=== PATIENT | female | born 1945 | race Caucasian/White ===

== ENCOUNTER → 2020-08-14 | Outpatient (CLI) | payer MEDICARE, OTHER ==
[~2020-08-14] MED LIST: ACET325; ALBU90OI; Advair Hfa 230-12 GM; CHOL10002 PO; COMBIGAN OS; Combigan Eye Dro5 ML; ESCI10; ESOM20 PO; LATA.005SO LEFTEYE; LEVSOD112 PO; LEVSOD125 PO; LIOT5 PO; LIVALO; LOVA40 PO; MELO7.5; OMEP20ER PO; Xalatan2.5 ML
[2020-08-16 14:59] LABS: CORONAVIRUS (COVID19) CSH-NRL Negative (Negative)
== END | disposition home or self-care (01) ==
LOC: LAB SHORT 16:55 → LAB 16:55
PROVIDERS: Physician Assistant
DX: R53.83 Other fatigue (principal); Z20.828 Contact with and (suspected) exposure to other viral communicable diseases
CPT/HCPCS: U0003

== ENCOUNTER 2023-05-05 08:51 | Day surgery (SDC) | payer MEDICARE, OTHER ==
[~2023-05-05] VITALS: Ht 170.2 cm; Wt 63.5 kg
[2023-05-05] MEDS ORDERED: NABU750 PO (09:48)
[2023-05-05] MEDS ORDERED: FOSAMAX70 MG PO (09:51)
[2023-05-05] MEDS ORDERED: PROG100 PO (09:52)
[2023-05-05] MEDS ORDERED: EUTHYROX100 MC1 PO (09:52)
[2023-05-05 12:38] VITALS: BP 147/67
== END 2023-05-05 12:41 | disposition home or self-care (01) ==
LOC: ORSCSDS 08:51
PROVIDERS: Internal Medicine Gastroenterology
PROC: 0DBN8ZX Excision of Sigmoid Colon, Via Natural or Artificial Opening Endoscopic, Diagnostic (ICD-10-PCS; principal; 2023-05-05 10:15)
PROC: 0DBL8ZX Excision of Transverse Colon, Via Natural or Artificial Opening Endoscopic, Diagnostic (ICD-10-PCS; principal; 2023-05-05 10:15)
PROC: 0DBM8ZX Excision of Descending Colon, Via Natural or Artificial Opening Endoscopic, Diagnostic (ICD-10-PCS; principal; 2023-05-05 10:15)
PROC: 0DBK8ZX Excision of Ascending Colon, Via Natural or Artificial Opening Endoscopic, Diagnostic (ICD-10-PCS; principal; 2023-05-05 10:15)
DX: Z12.11 Encounter for screening for malignant neoplasm of colon (principal); Z86.010 Personal history of colon polyps; D12.3 Benign neoplasm of transverse colon; D12.2 Benign neoplasm of ascending colon; D12.4 Benign neoplasm of descending colon; D12.5 Benign neoplasm of sigmoid colon; K63.5 Polyp of colon; K57.30 Diverticulosis of large intestine without perforation or abscess without bleeding; K64.4 Residual hemorrhoidal skin tags; E03.9 Hypothyroidism, unspecified; Z79.899 Other long term (current) drug therapy
CPT/HCPCS: 88305; J2405; J2704; J7120

== ENCOUNTER 2024-12-14 01:29 | Observation (INO) | payer MEDICARE, OTHER ==
[~2024-12-14] VITALS: Ht 167.6 cm; Wt 64.9 kg
[~2024-12-14 01:29] MED LIST changes: +EUTHYROX100 MC1 PO; +FOSAMAX70 MG PO; +NABU750 PO; +PROG100 PO
[2024-12-14] MEDS ORDERED: LIPITOR80 MG PO (01:54)
[2024-12-14] MEDS ORDERED: Nitroglycerin 0.4 MG SUBL SL ONE (02:00)
[2024-12-14 02:17] LABS: Albumin/Globulin Ratio 1.3 (0.8-1.8); Bilirubin, Total 0.6 mg/dL (0.1-1.0); Bun/Creatinine Ratio 21.7 (12.0-20.0); Calcium, Blood 9.3 mg/dL (8.5-10.1); Creatinine, Blood 0.83 mg/dL (0.40-1.00); Globulin, Blood 3.1 g/dL (2.2-4.0); Potassium, Blood 3.6 mmol/L (3.5-5.5); Total Protein, Blood 7.1 g/dL (6.4-8.2)
[2024-12-14 02:20] LABS: BASOPHILS ABSOLUTE AUTO 0.04 K/mm3 (0.00-0.23); BASOPHILS PERCENT AUTO 0 % (0-2); EOSINOPHILS PERCENT AUTO 2 % (0-6); Hematocrit 43.1 % (33.0-51.0); Hemoglobin 15.1 g/dL (11.5-16.0); IMMATURE GRAN ABSOLUTE AUTO 0.05 K/mm3 (0.00-0.10); IMMATURE GRAN PERCENT AUTO 1 % (0-1); LYMPHOCYTES ABSOLUTE AUTO 3.38 K/mm3 (0.84-5.20); LYMPHOCYTES PERCENT AUTO 34 % (21-46); MONOCYTES ABSOLUTE AUTO 0.81 K/mm3 (0.16-1.47); MONOCYTES PERCENT AUTO 8 % (4-13); Mean Corpuscular HGB 29.8 pg (26.0-34.0); Mean Corpuscular Volume 85 fL (80-100); Mean Platelet Volume 10.1 fL (9.1-12.4); NEUTROPHILS ABSOLUTE AUTO 5.45 K/mm3 (1.96-9.15); NEUTROPHILS PERCENT AUTO 55 % (41-73); Platelet Count 229 K/mm3 (150-400); RDW Coefficient Variation 12.9 % (11.7-14.2); RDW Standard Deviation 39.8 fL (35.1-46.3); Red Blood Cell Count 5.07 M/mm3 (3.80-5.20); White Blood Cell Count 9.93 K/mm3 (4.00-11.30)
[2024-12-14 02:37] LABS: Magnesium, Blood 2.1 mg/dL (1.6-2.4)
[2024-12-14] MEDS ORDERED: HydrALAZINE HCl 20 MG / ML 1ML Vial IV ONE (03:45)
[2024-12-14] MEDS ORDERED: FLU VACC TS2024-25(6MOS UP)/PF 45 MCG/0.5 ML SYRINGE IM ONE (04:05)
[2024-12-14] MEDS ORDERED: Ondansetron 4 MG TAB PO PRN (04:05)
[2024-12-14] MEDS ORDERED: HydrALAZINE HCl 20 MG / ML 1ML Vial IV PRN (04:05)
[2024-12-14] MEDS ORDERED: Morphine Sulfate 10 MG/ML 1MLSYR IV PRN (04:35)
[2024-12-14] MEDS ORDERED: Nitroglycerin 0.4 MG SUBL SL PRN (04:35)
[2024-12-14] MEDS ORDERED: Nitroglycerin 0.4 MG SUBL PO SCH (04:40)
[2024-12-14] MEDS ORDERED: NS 1,000 ML IV SCH (05:00)
[2024-12-14] MEDS ORDERED: Lactated Ringer's 1,000 ML IV SCH (05:00)
[2024-12-14 05:19] LABS: BASOPHILS ABSOLUTE AUTO 0.04 K/mm3 (0.00-0.23); BASOPHILS PERCENT AUTO 0 % (0-2); EOSINOPHILS ABSOLUTE AUTO 0.13 K/mm3 (0.00-0.68); EOSINOPHILS PERCENT AUTO 1 % (0-6); Hematocrit 43.9 % (33.0-51.0); Hemoglobin 15.1 g/dL (11.5-16.0); IMMATURE GRAN ABSOLUTE AUTO 0.03 K/mm3 (0.00-0.10); IMMATURE GRAN PERCENT AUTO 0 % (0-1); LYMPHOCYTES ABSOLUTE AUTO 2.57 K/mm3 (0.84-5.20); LYMPHOCYTES PERCENT AUTO 26 % (21-46); MONOCYTES ABSOLUTE AUTO 0.61 K/mm3 (0.16-1.47); MONOCYTES PERCENT AUTO 6 % (4-13); Mean Corpuscular HGB 29.3 pg (26.0-34.0); Mean Corpuscular HGB Conc 34.4 g/dL (31.5-36.5); Mean Corpuscular Volume 85 fL (80-100); Mean Platelet Volume 10.1 fL (9.1-12.4); NEUTROPHILS ABSOLUTE AUTO 6.38 K/mm3 (1.96-9.15); NEUTROPHILS PERCENT AUTO 65 % (41-73); Platelet Count 233 K/mm3 (150-400); RDW Coefficient Variation 12.9 % (11.7-14.2); RDW Standard Deviation 39.8 fL (35.1-46.3); Red Blood Cell Count 5.16 M/mm3 (3.80-5.20); White Blood Cell Count 9.76 K/mm3 (4.00-11.30)
[2024-12-14 05:33] LABS: International Normalized Ratio 0.99; Prothrombin Time Results 10.6 Sec (9.7-11.5)
[2024-12-14] MEDS ORDERED: Omeprazole 20 MG CapCR PO SCH (06:00)
[2024-12-14 06:02] LABS: Albumin, Blood 3.8 g/dL (3.4-5.0); Albumin/Globulin Ratio 1.2 (0.8-1.8); Bilirubin, Total 0.6 mg/dL (0.1-1.0); Bun/Creatinine Ratio 19.8 (12.0-20.0); Creatinine, Blood 0.81 mg/dL (0.40-1.00); Globulin, Blood 3.2 g/dL (2.2-4.0); Thyroid Stimulating Hormone 1.42 uIU/mL (0.360-4.800)
--- NOTE | 2024-12-14 06:50 | NUR ---
SHIFT SUMMARY REPORT RECIEVED FROM [facility]. PT ARRIVED TO PCU VIA [facility] AROUND 0455. PT STOOD AND TRANSFERED FROM [facility] TO PCU BED INDEPENDENTLY. PT A&O X4, CALM, COOPERATIVE TO CARE. HR IN THE 80'S-90'S, SINUS RHYTHM WITH BBB. PT STATED SHE HAS "CHEST TIGHTNESS, NOT PAIN" TIGHTNESS IS INTERMITTENT AND AT TIMES RADIATES TO ABD. PER TELE PT HAD SOME ST CHANGES, RESIDENT NOTIFIED. O2 >92% ON RA, DENIES SOB. PT WITH RAC PIV INFUSING PER EMAR. PTS DAUGHTER AT BEDSIDE. PT WITH SBP ELEVATED, MEDICATED PER EMAR. PT RESTING IN BED AT THIS TIME, WILL MONITOR PT AND REPORT TO ONCOMING RN.
[2024-12-14] MEDS ORDERED: Levothyroxine Sodium 0.1 MG Tab PO SCH ×2 (07:15→09:00)
[2024-12-14] MEDS ORDERED: Ondansetron HCl 2 MG / ML 2ML Vial IV PRN (07:15)
[2024-12-14 07:24] VITALS: BP 122/55
[2024-12-14] MEDS ORDERED: Enoxaparin 40 MG/0.4 ML SYR SC SCH (09:00)
[2024-12-14] MEDS ORDERED: Atorvastatin 40 MG Tab PO SCH (09:00)
[2024-12-14] MEDS ORDERED: Cholecalciferol 1000 Unit Tablet (=25MCG) PO SCH (09:00)
--- NOTE | 2024-12-14 10:45 | NUR ---
am note this rn assumed care at 0700. vital signs stable. tele sinus rhythm. patient is alert and oriented x4. neuro is intact. perrla. patient is able to make needs known and uses call light appropriately. denies pain or shortness of breath. patent when assuming care reporting chest pressure rated at 2, that resolved with time. see shift assessment for further detials. this rn discussed plan for stress test today with patient and patient daughters at bedside and verbalized understanding. patient had first part of stress test and just went down for imaging.
[2024-12-14 11:41] VITALS: BP 127/57
[2024-12-14 15:49] VITALS: BP 134/80
--- NOTE | 2024-12-14 17:24 | NUR ---
shift summary patient vital signs remain stable. neuro remains intact. plan for second part of stress test tomorrow at approx 1330. patient is aware of this and that the time can be subject to change. no acute changes since previous notes.
[2024-12-14] MEDS ORDERED: Acetaminophen 325 MG TABLET PO PRN (17:25)
[2024-12-14 19:40] VITALS: BP 150/64
[2024-12-15 01:16] VITALS: BP 137/69
--- NOTE | 2024-12-15 01:30 | NUR ---
UPDATE PT REPORTED SOME CHEST DISCOMFORT. PT DESCRIBED THE PAIN A "FLUTTERING" AND STATED IT WAS NOT PAINFUL. PT WAS MEDICATD PER EMAR AND REPORTS DISCOMFORT HAS RESOLVED. VSS. PT RESTING IN BED AT THIS TIME. WILL MONITOR PT.
[2024-12-15 03:46] VITALS: BP 123/62
[2024-12-15 04:43] LABS: BASOPHILS ABSOLUTE AUTO 0.05 K/mm3 (0.00-0.23); BASOPHILS PERCENT AUTO 1 % (0-2); EOSINOPHILS ABSOLUTE AUTO 0.17 K/mm3 (0.00-0.68); EOSINOPHILS PERCENT AUTO 2 % (0-6); Hematocrit 40.1 % (33.0-51.0); Hemoglobin 13.6 g/dL (11.5-16.0); IMMATURE GRAN ABSOLUTE AUTO 0.04 K/mm3 (0.00-0.10); IMMATURE GRAN PERCENT AUTO 0 % (0-1); LYMPHOCYTES PERCENT AUTO 28 % (21-46); MONOCYTES PERCENT AUTO 8 % (4-13); Mean Corpuscular HGB 29.3 pg (26.0-34.0); Mean Corpuscular HGB Conc 33.9 g/dL (31.5-36.5); Mean Corpuscular Volume 86 fL (80-100); Mean Platelet Volume 10.3 fL (9.1-12.4); NEUTROPHILS ABSOLUTE AUTO 5.73 K/mm3 (1.96-9.15); NEUTROPHILS PERCENT AUTO 62 % (41-73); Platelet Count 225 K/mm3 (150-400); RDW Coefficient Variation 13.2 % (11.7-14.2); Red Blood Cell Count 4.64 M/mm3 (3.80-5.20); White Blood Cell Count 9.29 K/mm3 (4.00-11.30)
[2024-12-15 05:14] LABS: Bun/Creatinine Ratio 20.3 (12.0-20.0); Calcium, Blood 9.1 mg/dL (8.5-10.1); Creatinine, Blood 0.89 mg/dL (0.40-1.00); Potassium, Blood 3.9 mmol/L (3.5-5.5)
[2024-12-15] MEDS ORDERED: Omeprazole 20 MG CapCR PO SCH (06:00)
--- NOTE | 2024-12-15 06:37 | NUR ---
SHIFT SUMMARY PT A&O X4, CALM, COOPERATIVE TO CARE. HR IN THE 60'S, SINUS RHYTHM, BBB. PT DENIES CP/PRESSURE AT THIS TIME. SHE DID HAVE ONE EPISODE OF CHEST DISCOMFORT DESCRIBED "FLUTTERING", MEDICATED PER EMAR, PT REPORTED DISCOMFORT RESOLVED PT DESATED TO 88-89% DURING THE NIGHT, PT PLACED ON 2L VIA NC. O2 IMPROVED, PT NOW ON RA SATING AT 94%. PT NPO T/O NIGHT FOR SECOND PORTION OF STRESS TEST TODAY. PT RESTING IN BED AT THIS TIME. WILL MONITOR PT AND REPORT TO ONCOMING RN.
[2024-12-15 08:05] VITALS: BP 126/65
[2024-12-15 11:11] VITALS: BP 116/52
[2024-12-15] MEDS ORDERED: Regadenoson 0.4 MG/5 ML SYRINGE ONE ×2 (13:21→13:48)
[2024-12-15] MEDS ORDERED: Amlodipine Bes2.5 MG PO (16:52)
[2024-12-15] MEDS ORDERED: METO25ER PO (16:52)
--- NOTE | 2024-12-15 17:51 | NUR ---
DISCHARGE HOME PT A&O X4. VSS. SPO2 > 92% ON RA. MONITOR SHOWING SR W/ BBB & PVCs. PT DENYING CP/DISCOMFORT THIS SHIFT. STRESS TEST COMPLETE. W/ ORDER FOR DISCHARGE HOME. NEW MEDICATIONS FAXED TO PT'S PREFERRED PHARMACY. DISCHARGE INSTRUCTIONS REVIEWED W/ PT & SENT HOME W/ PT. PT TAKEN OUT IN WHEELCHAIR W/ BELONGINGS @ APPROX 1720.
== END 2024-12-15 17:20 | disposition home or self-care (01) ==
LOC: ER 01:29 → PCU 04:01
PROVIDERS: Emergency Medicine; Internal Medicine; Student in an Organized Health Care Education/Training Program; ADMIT Student in an Organized Health Care Education/Training Program
DX: R07.89 Other chest pain (principal); I10 Essential (primary) hypertension; I49.3 Ventricular premature depolarization; I44.7 Left bundle-branch block, unspecified; I51.7 Cardiomegaly; E89.0 Postprocedural hypothyroidism; E78.5 Hyperlipidemia, unspecified; K21.9 Gastro-esophageal reflux disease without esophagitis; M81.0 Age-related osteoporosis without current pathological fracture; Z79.899 Other long term (current) drug therapy; Z88.8 Allergy status to other drugs, medicaments and biological substances; Z79.83 Long term (current) use of bisphosphonates; R06.02 Shortness of breath
CPT/HCPCS: 36415; 71046; 78452; 80048; 80053; 83036; 83735; 84443; 84484; 85025; 85610; 93005; 93010; 93017; 93306; 94762; 99285-25; A9270; A9500; G0378; J0360; J1650; J2270; J2405; J2785; J7030